=== PATIENT | male | born 1960 | race Caucasian/White ===

== ENCOUNTER 2016-07-31 21:18 | Inpatient (IN) | payer OTHER ==
[2016-07-31] MEDS ORDERED: IBUPROFEN 800 MG TAB PO STA (22:00)
[2016-07-31] MEDS ORDERED: SODIUM CHLORIDE 0.9% 1,000 ML IV STA (22:00)
[2016-07-31] MEDS ORDERED: SODIUM CHLORIDE 0.9% 500 ML IV STA (22:00)
--- NOTE | 2016-07-31 22:09 | ED ---
General Adult HPI <Aung Simmons - Last Filed: 08/01/16 01:14> - General Source: patient, RN notes reviewed Mode of arrival: wheelchair Limitations: no limitations <Hossein Witt - Last Filed: 08/01/16 01:44> - General Chief complaint: Shortness of Breath Stated complaint: Fever/Weak Time Seen by Provider: 07/31/16 21:42 - History of Present Illness Initial comments: This a 55-year-old male presents emergency Department chief complaint of fever, not feeling well. Patient states that he recently traveled for a wedding and states that he developed a fever and some congestion. Patient was seen at urgent care today and diagnosed with pneumonia. Patient was placed on doxycycline. Patient states that she took 975 mg of Tylenol at 8:30. Patient states that he has had a cough but denies any sore throat, ear pain. Patient states he has had adequate the fever. States it comes and goes. Patient had influenza, strep, x-ray and urinalysis performed at urgent care. Patient had mild hematuria no leukocytes. Patient has no abdominal pain denies any nausea vomiting diarrhea constipation. Denies any neck stiffness. (Hossein Witt) - Related Data Home Medications Medication Instructions Recorded Confirmed Metoprolol Succinate (ER) [Toprol 25 mg PO HS 01/23/15 01/24/15 XL] Omeprazole [PriLOSEC] 20 mg PO AC-BRKFST 01/23/15 01/23/15 ALPRAZolam [Xanax] 0.5 mg PO DAILY PRN 01/24/15 01/24/15 Acetaminophen Tab [Tylenol] 500 mg PO Q6H PRN 01/24/15 01/24/15 Aspirin 325 mg PO DAILY 01/24/15 01/24/15 Cholecalciferol [Vitamin D3] 1,000 unit PO DAILY@1200 01/24/15 01/24/15 Diclofenac Sodium [Voltaren] 75 mg PO DAILY 01/24/15 01/24/15 Etanercept [Enbrel] 50 mg SQ SA 01/24/15 01/24/15 Loratadine [Claritin] 10 mg PO DAILY 01/24/15 01/24/15 Vardenafil HCl [Levitra] 20 mg PO DAILY PRN 01/24/15 01/24/15 Previous Rx's Medication Instructions Recorded Aspirin EC [Ecotrin] 325 mg PO DAILY #30 tablet. 01/26/15 Atorvastatin [Lipitor] 80 mg PO HS #30 tab 01/26/15 Lisinopril [Zestril] 5 mg PO BID #60 tab 01/26/15 Nitroglycerin Sl Tabs [Nitrostat] 0.4 mg SUBLINGUAL Q5M PRN #25 tab 01/26/15 Prasugrel [Effient] 10 mg PO DAILY #30 tab 01/26/15 Allergies Allergy/AdvReac Type Severity Reaction Status Date / Time amoxicillin Allergy Rash/Hives Verified 01/24/15 12:09 shellfish derived [Shellfish] Allergy Anaphylaxis Verified 01/24/15 12:09 Sulfa (Sulfonamide Allergy Rash/Hives Verified 01/24/15 12:09 Antibiotics) Review of Systems ROS Other: All systems not noted in ROS Statement are negative. <Aung Simmons - Last Filed: 08/01/16 01:14> ROS Other: All systems not noted in ROS Statement are negative. <Hossein Witt - Last Filed: 08/01/16 01:44> ROS Statement: Those systems with pertinent positive or pertinent negative responses have been documented in the HPI. Past Medical History Past Medical History: GERD/Reflux, Hyperlipidemia, Hypertension, Osteoarthritis (OA) Additional Past Medical History / Comment(s): Psoriatic arthritis History of Any Multi-Drug Resistant Organisms: None Reported Past Surgical History: Hernia Repair, Pacemaker Past Anesthesia/Blood Transfusion Reactions: No Reported Reaction Type of Cardiac Device: Permanent Pacemaker Device Placement Date:: 10/2013 Past Psychological History: No Psychological Hx Reported Smoking Status: Former smoker Past Alcohol Use History: Occasional Past Drug Use History: None Reported - Past Family History Father Family Medical History: Coronary Artery Disease (CAD), Myocardial Infarction ([place] ) Mother Family Medical History: Coronary Artery Disease (CAD), CVA/TIA Sister(s) Family Medical History: Diabetes Mellitus Brother(s) Family Medical History: Sleep Apnea/CPAP/BIPAP <Hossein Witt - Last Filed: 08/01/16 01:44> General Exam Limitations: no limitations General appearance: alert, in no apparent distress Head exam: Present: atraumatic, normocephalic, normal inspection Eye exam: Present: normal appearance, PERRL, EOMI. Absent: scleral icterus, conjunctival injection, periorbital swelling ENT exam: Present: normal exam, normal oropharynx, mucous membranes moist Neck exam: Present: normal inspection, full ROM. Absent: tenderness, meningismus, lymphadenopathy Respiratory exam: Present: normal lung sounds bilaterally. Absent: respiratory distress, wheezes, rales, rhonchi, stridor Cardiovascular Exam: Present: regular rate, normal rhythm, normal heart sounds. Absent: systolic murmur, diastolic murmur, rubs, gallop, clicks GI/Abdominal exam: Present: soft, normal bowel sounds. Absent: distended, tenderness, guarding, rebound, rigid <Hossein Witt - Last Filed: 08/01/16 01:44> Procedures - Lumbar Puncture Time Out Performed: Yes (Patient agreed to proceed with the LP) Indication for Procedure: headache, fever work up Patient Position: right lateral decubitus Skin Prep: 0.5% Chlorhexidine/Alcohol Local Anesthetic Used: Lidocaine 1% Spinal Needle Gauge: 20G Spinal Needle Length: 3in Interspace Used: L3-L4 Fluid Initially Obtained: clear Complications: none (Patient has a lot of arthritis, it was hard to get him in right position but he did well there were no Medications from the procedure) <Aung Simmons - Last Filed: 08/01/16 01:14> Medical Decision Making - Lab Data Result diagrams: 07/31/16 22:10 07/31/16 22:10 <Aung Simmons - Last Filed: 08/01/16 01:14> - Lab Data Result diagrams: 07/31/16 22:10 07/31/16 22:10 <Hosesin Witt - Last Filed: 08/01/16 01:44> - Lab Data Lab Results 07/31/16 07/31/16 07/31/16 Range/Units 22:10 22:10 22:10 WBC 3.1 L (3.8-10.6) k/uL RBC 4.48 (4.30-5.90) m/uL Hgb 15.3 (13.0-17.5) gm/dL Hct 44.3 (39.0-53.0) % MCV 98.9 (80.0-100.0) fL MCH 34.0 (25.0-35.0) pg MCHC 34.4 (31.0-37.0) g/dL RDW 14.5 (11.5-15.5) % Plt Count 118 L (150-450) k/uL Neutrophils % 67 % Lymphocytes % 18 % Monocytes % 10 % Eosinophils % 0 % Basophils % 0 % Neutrophils # 2.1 (1.3-7.7) k/uL Lymphocytes # 0.6 L (1.0-4.8) k/uL Monocytes # 0.3 (0-1.0) k/uL Eosinophils # 0.0 (0-0.7) k/uL Basophils # 0.0 (0-0.2) k/uL Sodium 140 (137-145) mmol/L Potassium 3.4 L (3.5-5.1) mmol/L Chloride 105 (98-107) mmol/L Carbon Dioxide 25 (22-30) mmol/L Anion Gap 10 mmol/L BUN 13 (9-20) mg/dL Creatinine 0.80 (0.66-1.25) mg/dL Est GFR (MDRD) Af Amer >60 (>60 ml/min/1.73 sqM) Est GFR (MDRD) Non-Af >60 (>60 ml/min/1.73 sqM) Glucose 162 H (74-99) mg/dL Plasma Lactic Acid Cameron (0.7-2.0) mmol/L Calcium 9.1 (8.4-10.2) mg/dL Magnesium 1.8 (1.6-2.3) mg/dL Total Bilirubin 0.4 (0.2-1.3) mg/dL AST 69 H (17-59) U/L ALT 69 (21-72) U/L Alkaline Phosphatase 42 (38-126) U/L Troponin I <0.012 (0.000-0.034) ng/mL Total Protein 6.5 (6.3-8.2) g/dL Albumin 4.0 (3.5-5.0) g/dL CSF Glucose (40-70) mg/dL CSF Total Protein (12-60) mg/dL 07/31/16 08/01/16 Range/Units 22:10 00:55 WBC (3.8-10.6) k/uL RBC (4.30-5.90) m/uL Hgb (13.0-17.5) gm/dL Hct (39.0-53.0) % MCV (80.0-100.0) fL MCH (25.0-35.0) pg MCHC (31.0-37.0) g/dL RDW (11.5-15.5) % Plt Count (150-450) k/uL Neutrophils % % Lymphocytes % % Monocytes % % Eosinophils % % Basophils % % Neutrophils # (1.3-7.7) k/uL Lymphocytes # (1.0-4.8) k/uL Monocytes # (0-1.0) k/uL Eosinophils # (0-0.7) k/uL Basophils # (0-0.2) k/uL Sodium (137-145) mmol/L Potassium (3.5-5.1) mmol/L Chloride (98-107) mmol/L Carbon Dioxide (22-30) mmol/L Anion Gap mmol/L BUN (9-20) mg/dL Creatinine (0.66-1.25) mg/dL Est GFR (MDRD) Af Amer (>60 ml/min/1.73 sqM) Est GFR (MDRD) Non-Af (>60 ml/min/1.73 sqM) Glucose (74-99) mg/dL Plasma Lactic Acid Cameron 1.9 (0.7-2.0) mmol/L Calcium (8.4-10.2) mg/dL Magnesium (1.6-2.3) mg/dL Total Bilirubin (0.2-1.3) mg/dL AST (17-59) U/L ALT (21-72) U/L Alkaline Phosphatase (38-126) U/L Troponin I (0.000-0.034) ng/mL Total Protein (6.3-8.2) g/dL Albumin (3.5-5.0) g/dL CSF Glucose 68 (40-70) mg/dL CSF Total Protein 57 (12-60) mg/dL Disposition <Aung Simmons - Last Filed: 08/01/16 01:14> <Hossein Witt - Last Filed: 08/01/16 01:44> Clinical Impression: Headache, Fever Disposition: ADMITTED IP TO THIS [facility] Condition: Fair Referrals: Nonstaff,Physician [Primary Care Provider] - 1-2 days
[2016-07-31 22:29] LABS: ALT 69 U/L (21-72); AST 69 U/L (17-59); Alkaline Phosphatase 42 U/L (38-126); Anion Gap 10 mmol/L; Blood Urea Nitrogen 13 mg/dL (9-20); Calcium 9.1 mg/dL (8.4-10.2); Carbon Dioxide 25 mmol/L (22-30); Chloride 105 mmol/L (98-107); Glucose 162 mg/dL (74-99); Magnesium 1.8 mg/dL (1.6-2.3); Non-African American GFR(MDRD) >60 (>60 ml/min/1.73 sqM); Potassium 3.4 mmol/L (3.5-5.1); Sodium 140 mmol/L (137-145); Total Bilirubin 0.4 mg/dL (0.2-1.3); Total Protein 6.5 g/dL (6.3-8.2)
[2016-07-31 22:37] LABS: Basophils % (A) 0 %; CH 34.8; CHCM 35.4; Eosinophils % (A) 0 %; HCT 44.3 % (39.0-53.0); HDW 2.63; HGB 15.3 gm/dL (13.0-17.5); Luc # (Auto) 0.14; Luc % (Auto) 4; Lymphocytes # (A) 0.6 k/uL (1.0-4.8); Lymphocytes % (A) 18 %; MCHC 34.4 g/dL (31.0-37.0); MCV 98.9 fL (80.0-100.0); Mean Platelet Volume 6.5; Monocytes # (A) 0.3 k/uL (0-1.0); Monocytes % (A) 10 %; Neutrophils # (A) 2.1 k/uL (1.3-7.7); Neutrophils % (A) 67 %; RBC 4.48 m/uL (4.30-5.90); RDW 14.5 % (11.5-15.5); WBC 3.1 k/uL (3.8-10.6); WBC (Perox) 3.02
--- NOTE | 2016-07-31 22:46 | XR ---
EXAM: XR Chest, 2 Views CLINICAL HISTORY: Reason: difficulty breathing TECHNIQUE: Frontal and lateral views of the chest. COMPARISON: 01/23/2015 FINDINGS: Lungs: Unremarkable. No consolidation. Pleural space: Unremarkable. No pneumothorax. Heart: Unremarkable. No cardiomegaly. Mediastinum: Unremarkable. Bones/joints: No acute osseous abnormality. Tubes, lines and devices: Stable left chest wall pacemaker. IMPRESSION: No acute cardiopulmonary process.
--- NOTE | 2016-08-01 00:22 | CT ---
EXAM: CT Head Without Intravenous Contrast CLINICAL HISTORY: Pain TECHNIQUE: Axial computed tomography images of the head/brain without intravenous contrast. CTDI is 57.40 mGy and DLP is 1098.80 mGy-cm. This CT exam was performed using one or more of the following dose reduction techniques: automated exposure control, adjustment of the mA and/or kV according to patient size, and/or use of iterative reconstruction technique. COMPARISON: No relevant prior studies available. FINDINGS: Brain: Unremarkable. No acute hemorrhage. Normal moore-white differentiation. No significant mass effect. Ventricles: Unremarkable. No ventriculomegaly. Bones/joints: Unremarkable. No acute fracture. Soft tissues: Unremarkable. Sinuses: Unremarkable as visualized. No acute sinusitis. Mastoid air cells: Unremarkable. IMPRESSION: No acute intracranial abnormality.
[2016-08-01] MEDS ORDERED: IV VANCOMYCIN PER PHARMACY 1 EACH MISC MISCELLANE PRN (00:34)
[2016-08-01] MEDS ORDERED: cefTRIAXone 2,000 MG in SODIUM CHLORIDE 0.9% 100 ML IVPB STA (00:40)
[2016-08-01] MEDS ORDERED: VANCOMYCIN 1,750 MG in SODIUM CHLORIDE 0.9% 250 ML IVPB SCH ×2 (01:00→10:00)
[2016-08-01 01:30] LABS: Glucose,CSF 68 mg/dL (40-70)
[2016-08-01] MEDS ORDERED: ONDANSETRON 4 MG/2 ML VIAL IVP PRN (01:44)
[2016-08-01] MEDS ORDERED: LORazepam 2 MG/ML SYRINGE IV PRN (01:44)
[2016-08-01] MEDS ORDERED: NALOXONE 0.4 MG/ML 1 ML VIAL IV PRN (01:44)
[2016-08-01] MEDS ORDERED: MORPHINE SULFATE 4 MG/ML SYRINGE IV PRN (01:44)
[2016-08-01 02:13] LABS: Appearance,CSF Clear
[2016-08-01 03:13] LABS: Red Blood Cell, CSF Crenated 100 %
[2016-08-01] MEDS: SODIUM CHLORIDE 0.9% 1,000 ML IV SCH ×2 (03:46→17:08)
[2016-08-01] MEDS ORDERED: ALPRAZolam 0.5 MG TAB PO PRN (10:43)
[2016-08-01] MEDS ORDERED: VARDENAFIL HCL 20 MG PO PRN (10:49)
[2016-08-01] MEDS ORDERED: NITROGLYCERIN SL TABS 0.4 MG TAB SUBLINGUAL PRN (10:49)
[2016-08-01] MEDS ORDERED: HYDROCHLOROTHIAZIDE 12.5 MG CAP PO SCH (11:15)
[2016-08-01] MEDS: VALSARTAN 160 MG TAB PO SCH (11:28)
[2016-08-01] MEDS: FOLIC ACID 1 MG TAB PO SCH (11:28)
[2016-08-01] MEDS: LORATADINE 10 MG TAB PO SCH (11:29)
[2016-08-01] MEDS: LACTOBACILLUS ACIDOPH & BULGAR 1 EACH PACKET PO SCH (11:29)
[2016-08-01] MEDS: MULTIVITAMINS, THERA 1 EACH TAB PO SCH (11:30)
[2016-08-01] MEDS: CLOPIDOGREL 75 MG TAB PO SCH (11:30)
[2016-08-01] MEDS: ESCITALOPRAM 10 MG TAB PO SCH (11:30)
[2016-08-01] MEDS: CHOLECALCIFEROL 1,000 UNIT TAB PO SCH (11:30)
[2016-08-01] MEDS: HYDROcodone/APAP 5-325MG 1 EACH TAB PO PRN ×3 (11:39→23:01)
[2016-08-01 15:14] LABS: Appearance,Urine Clear (Clear); Bilirubin,Urine Negative (Negative); Glucose,Urine (UA) Negative (Negative); Ketones,Urine Negative (Negative); Leukocyte Esterase,Urine Negative (Negative); Nitrite,Urine Negative (Negative); Protein,Urine Negative (Negative); UA Billing (MACRO vs. MICRO) CHEM; Urobilinogen,Urine <2.0 mg/dL (<2.0)
[2016-08-01] MEDS: ACETAMINOPHEN TAB 325 MG TAB PO PRN ×2 (15:19→23:03)
[2016-08-01] MEDS ORDERED: LEVOFLOXACIN 750 MG TAB PO SCH (17:30)
--- NOTE | 2016-08-01 17:51 | CT ---
EXAMINATION TYPE: CT chest wo con DATE OF EXAM: 08/01/2016 5:19 PM COMPARISON: NONE HISTORY: Fever and headaches x [address] DLP: 531.70 mGycm Automated exposure control for dose reduction was used. FINDINGS: The lungs are clear of consolidation. There is no pleural effusion. There is mild subsegmental atelec tasis at the posterior lung bases. There is no evidence of a pulmonary mass. There are a few mediastinal lymph nodes that measure up to 1.5 cm. There are no hilar masses. There i s no pericardial effusion. Thoracic aorta has normal size. There is no evidence of aneurysm. The bony thorax is intact. There is a 4 cm low-density area on the posterior right kidney consistent with cor tical cyst. IMPRESSION: THERE ARE A FEW MEDIASTINAL NONSPECIFIC LYMPH NODES. MILD SCARRING OR SUBSEGMENTAL ATELECTASIS AT THE LUNG BASES. NO EVIDENCE OF BRONCHOPNEUMONIA.
[2016-08-01] MEDS ORDERED: METOPROLOL SUCCINATE (ER) 25 MG TAB.ER.24H PO SCH (21:00)
[2016-08-01] MEDS ORDERED: ATORVASTATIN 40 MG TAB PO SCH (21:00)
[2016-08-01] MEDS ORDERED: RIVAROXABAN 10 MG TAB PO SCH (21:00)
[2016-08-02] MEDS: SODIUM CHLORIDE 0.9% 1,000 ML IV SCH (05:50)
[2016-08-02] MEDS ORDERED: PANTOPRAZOLE 40 MG TABLET PO SCH (07:30)
[2016-08-02 07:32] VITALS: BP 130/79; PULSE 69; RESP 22; TEMP 98.7
--- NOTE | 2016-08-02 07:56 | HP ---
DATE OF ADMISSION: 08/01/2016 55-year-old gentleman from [place] came in with complaints ( ) was started on Monday. Patient came from [place] to [place] on Monday. The patient was having some cough. Patient was told he has pneumonia, although chest x-ray did not show any pneumonic process. Patient denied any significant sputum production. Patient denied any dysuria, denied any nausea, vomiting. Denied any abdominal pain, diarrhea. Patient had diarrhea after antibiotics. If she has diarrhea again, we will obtain Clostridium difficile testing. We will obtain an influenza testing here. UA and urine cultures will be obtained as well. Patient has psoriatic arthritis for which patient received Enbrel that is ( ) and also methotrexate. Patient had coccidiomycosis serology and Histoplasma serology were being obtained at this point of time and infectious disease will be consulted. Patient denied any stiffness. Patient underwent lumbar puncture as well, which is negative for any kind of infection including viral meningitis. Patient was having myalgias as well. ROS: All other systems were reviewed and were negative. Home medications include: 1. Metoprolol. 2. Omeprazole. 3. Alprazolam. 4. Acetaminophen. 5. Aspirin. 6. Cholecalciferol. 7. Diclofenac. 8. ( ). 9. Loratadine. 10. Modafil. 11. Aspirin. 12. Lovastatin. 13. Lisinopril. 14. Nitroglycerin. 15. Effient. ALLERGIC TO AMOXICILLIN, SHELLFISH AND SULFA DRUGS. PAST MEDICAL HISTORY: Significant for gastroesophageal reflux disease, hyperlipidemia, hypertension, osteoarthritis, hernia repair, permanent pacemaker placement. Psoriatic arthritis in the past. SOCIAL HISTORY: Former smoker. Denied any alcohol abuse or drug abuse. FAMILY HISTORY: Father had coronary artery disease. Mother had coronary artery disease, sister has history of diabetes mellitus, brother has sleep apnea. PHYSICAL EXAMINATION: VITAL SIGNS: Temperature 100.4, pulse of 72, respiratory rate of 19, blood pressure is 134/81. Saturating at 97% on room air. GENERAL: The patient is alert and oriented x3, not in any acute distress. Well developed, well nourished. HEENT: Pupils are round and equally reacting to light. EOMI. No scleral icterus. No conjunctival pallor. Normocephalic, atraumatic. No pharyngeal erythema. No thyromegaly. CARDIOVASCULAR: S1 and S2 present. No murmurs, rubs, or gallops. PULMONARY: Chest is clear to auscultation, no wheezing or crackles. ABDOMEN: Soft, nontender, nondistended, normoactive bowel sounds. No palpable organomegaly. MUSCULOSKELETAL: No joint swelling or deformity. EXTREMITIES: No cyanosis, clubbing, or pedal edema. NEUROLOGICAL: Gross neurological examination did not reveal any focal deficits. SKIN: No rashes. CMP, essentially within normal limits. Potassium is 3.4. Chest x-ray brain CT all the rest of the work-up is essentially negative. ASSESSMENT AND PLAN: 1. Fever of unknown origin as patient is from [place] and patient is immunosuppressed we will look for coccidioidomycosis and histoplasmosis and patient will be on empiric antibiotics Rocephin. I believe vancomycin can be discontinued, but I will leave the decision to infectious disease and no other source of infection was found. 2. Hypokalemia potassium will be supplemented. 3. Patient is immunosuppressive secondary to Enbrel and methotrexate for psoriatic arthritis, which will be continued at this point of time. 4. Hyperlipidemia. 5. Hypertension. 6. Diabetes mellitus. For above mentioned chronic medical problems, we will go ahead and continue his home medications. ROBERTA
[2016-08-02] MEDS ORDERED: cefTRIAXone 2,000 MG in SODIUM CHLORIDE 0.9% 100 ML IVPB SCH (09:00)
[2016-08-02 09:03] LABS: Anion Gap 8 mmol/L; Blood Urea Nitrogen 9 mg/dL (9-20); Calcium 8.7 mg/dL (8.4-10.2); Carbon Dioxide 27 mmol/L (22-30); Chloride 105 mmol/L (98-107); Glucose 107 mg/dL (74-99); Non-African American GFR(MDRD) >60 (>60 ml/min/1.73 sqM); Potassium 3.7 mmol/L (3.5-5.1); Sodium 140 mmol/L (137-145)
[2016-08-02] MEDS: VALSARTAN 160 MG TAB PO SCH (09:18)
[2016-08-02] MEDS: ESCITALOPRAM 10 MG TAB PO SCH (09:18)
[2016-08-02] MEDS: LORATADINE 10 MG TAB PO SCH (09:19)
[2016-08-02] MEDS: CLOPIDOGREL 75 MG TAB PO SCH (09:19)
[2016-08-02] MEDS: LACTOBACILLUS ACIDOPH & BULGAR 1 EACH PACKET PO SCH (09:19)
[2016-08-02] MEDS: HYDROcodone/APAP 5-325MG 1 EACH TAB PO PRN (09:26)
[2016-08-02] MEDS: ACETAMINOPHEN TAB 325 MG TAB PO PRN (09:26)
[2016-08-02 09:33] LABS: CH 34.2; CHCM 33.8; HCT 45.1 % (39.0-53.0); HDW 2.55; HGB 14.8 gm/dL (13.0-17.5); MCH 33.4 pg (25.0-35.0); MCHC 32.9 g/dL (31.0-37.0); MCV 101.7 fL (80.0-100.0); Macrocytosis Slight; Mean Platelet Volume 6.9; RBC 4.44 m/uL (4.30-5.90); RDW 14.6 % (11.5-15.5); WBC 2.9 k/uL (3.8-10.6)
--- NOTE | 2016-08-02 09:35 | CONS ---
DATE OF CONSULTATION: 08/01/2016 REASON FOR CONSULTATION: Fever. HISTORY OF PRESENT ILLNESS: The patient is a 55-year-old male with past medical history significant for cellulitis, arthritis currently on the immunosuppressant medication. The patient is a resident of [place], has been living there for about 14 years now. He came in to [place] to attend a wedding. The patient said his flight was on Monday and Monday morning he did have some chills and some generalized body aches. However, the patient had bought his ticket and he decided to come to [place]. Over the next 2 days, the patient says he stayed mostly in the bed, feeling weak, lethargic. On Monday still having a fever of 102 degrees Fahrenheit. The patient's symptom also significant headache almost 9 out of 10, with associated photophobia. However, the patient denies significant runny nose or any sore throat. Denies significant chest pain. He did have some mild cough and some left lower rib cage chest pain especially when taking a deep breath or cough. However, unable to bring any sputum up. The patient denies having any abdominal pain. Did have two loose stools today. With these symptoms, the patient was initially evaluated at an urgent care. Subsequently referred to the [facility] ER for further evaluation. Patient has been evaluated by the ER physician. On arrival to the ER, patient did have a fever of 102.6 degrees Fahrenheit. The patient white count was 3.1. UA has been negative. The patient did have a spinal tap with the glucose 68, however, the white count was only 1. Patient has been treated with vancomycin and Rocephin was added. I was asked to see the patient for further recommendation regarding antibiotic therapy. REVIEW OF SYSTEMS: CONSTITUTIONAL: Positive for weakness and fever. EYES: No complaint. ENT: No complaint. RESPIRATORY: As per HPI. CARDIOVASCULAR: No complaint. GENITOURINARY: No complaint. GI: No complaint. MUSCULOSKELETAL: No complaint. INTEGUMENTARY: No complaint. ENDOCRINE: No complaint. NEUROLOGIC: No complaint. Past medical history significant for gastroesophageal reflux disease, hypertension, hyperlipidemia, osteoarthritis, psoriatic arthritis, history of DVT and PE. PAST SURGICAL HISTORY: Hernia repair and pacemaker placement. SOCIAL HISTORY: Remote history of smoking. No drinking or drug use. FAMILY HISTORY: Father has coronary artery disease, mother with a history of coronary artery disease, CVA, TIA and one sister with diabetes mellitus. ALLERGIES: AMOXICILLIN SHELLFISH, SULFA. MEDICATIONS: Currently include the patient is on: 1. Tylenol. 2. [place]. 3. Xanax. 4. Lipitor. 5. Rocephin 2 grams daily. 6. Vitamin D3. 7. Plavix. 8. Lexapro. 9. Lactinex. 10. Claritin. 11. Ativan. 12. Methotrexate. 13. Toprol-XL. 14. Theragran. 15. Narcan. 16. Nitrostat. 17. Zofran. 18. Protonix. 19. Xarelto. 20. Diovan. On examination, blood pressure is 134/80 with a pulse of 72, temperature of 100.4. He is 97% on room air. General description is a middle-age male lying in bed in no distress. No tachypnea or accessory muscles of respiration use. HEENT examination no pallor or scleral icterus. Oral mucous membranes moist. NECK: Trachea is central. No thyromegaly. LUNGS: Unlabored breathing. Coarse breath sounds at the base. No wheeze. HEART: S1, S2. Regular rate and rhythm. ABDOMEN: Soft. No tenderness. No guarding or rigidity. EXTREMITIES: No edema of feet. Some psoriatic rash but no definite cellulitis. NEUROLOGICAL: The patient is awake, alert, oriented x3. No signs of neck rigidity. LABS: Hemoglobin is 15.8, white count 3.1 with a BUN of 13, creatinine 0.80, potassium is 3.4. UA negative. CSF examination was negative. DIAGNOSTIC IMPRESSION AND PLAN: Patient with sepsis and patient did have a fever 102 degrees Fahrenheit. Did have slight leukopenia. Symptoms are predominant respiratory underlying pneumonia of community-acquired cannot be entirely excluded. Patient did have a significant amount of headache. However, the patient did have an LP and that was relatively clear. The patient with no other clinical focus of infection. on clinical examination with no evidence of any cellulitis or joint swelling. PLAN: 1. Discontinue the vancomycin. 2. Will obtain CT scan of the chest without any contrast to make sure did not have any significant amount of pneumonia. 3. We will obtain sputum for gram stain culture and sensitivity. 4. Obtain urine for legionella antigen. 5. Continue Rocephin. We will discontinue the vancomycin and Levaquin to cover for community acquired pathogen. 6. We will follow up on the clinical condition and cultures to further adjust the medication if needed. Thank you for this consultation. We will follow this patient along with you. ROBERTA
[2016-08-02] MEDS: FOLIC ACID 1 MG TAB PO SCH (12:44)
[2016-08-02] MEDS: MULTIVITAMINS, THERA 1 EACH TAB PO SCH (12:44)
[2016-08-02] MEDS: CHOLECALCIFEROL 1,000 UNIT TAB PO SCH (12:44)
--- NOTE | 2016-08-02 17:02 | PN ---
DATE OF SERVICE: 08/02/2016 REASON FOR FOLLOWUP: Fever and a question of pneumonia. INTERVAL HISTORY: The patient overall feels better and has improved. The patient is feeling much better. His headache has completely resolved. The patient denies significant chest pain or shortness of breath. Mild cough. No abdominal pain and no diarrhea. On examination, blood pressure is 130/79 with a pulse of 69, temperature 98.7. He is 98% on room air. General description is a middle-aged male lying in bed in no distress. RESPIRATORY SYSTEM: Unlabored breathing. Clear to auscultation anteriorly. HEART: S1, S2. Regular rate and rhythm. ABDOMEN: Soft. No tenderness. LABS: Hemoglobin is 14.8, white count 2.9 with a BUN of 9, creatinine 0.77. Urine is negative. Blood cultures are so far negative. Patient did have a CT of the chest yesterday which did show mild scarring of subsegmental atelectasis at the lung base; a few mediastinal non-specific lymph nodes. DIAGNOSTIC IMPRESSION AND PLAN: Patient admitted to hospital with a fever; did have a cough with a question of possible community-acquired pneumonia not entirely excluded. Patient did have overall improvement on Rocephin and Levaquin. Patient is from [place] and does have a flight back tomorrow. He should be able to go home from ID standpoint today, finishing therapy with p.o. Ceftin. Patient has been advised to take his CT on a disc from here and have a followup with his physician there in view of the lymph nodes that may need to be followed up. All their questions and concerns were answered.
[2016-08-02] MEDS ORDERED: VANCOMYCIN TROUGH DUE 1 EACH MISC MISCELLANE ONE (21:00)
--- NOTE | 2016-08-05 11:14 | CDI ---
In responding to this query, please exercise your independent professional judgment. The [facility] Coding Staff and Clinical Documentation Specialists appreciate your assistance in clarifying documentation, maintaining compliance with coding guidelines, accurately documenting patients condition and capturing severity of illness. The fact that a question is asked does not imply that any particular answer is desired or expected. Communication forms are a method of clarifying documentation and are not made part of the Legal Health Record. Thank you in advance for your clarification. Last Revision, January 2015 Elli Alfred [address] [facility] [place] [address] Documentation Clarification Form Date: 08/05/2016 11:03:00 AM From: Kerry Dang Admit Date: 08/01/2016 1:54:00 AM Patient Name: Ricardo Greene Visit Number: [id number] Discharge Date: 08/05/16 Dr. Nuria Prince or Aracely Linder 55 year old male from [place] presents with cough, fever and headache. History of psoriatic arthritis under treatment. Lumbar puncture was negative. ID consult stated patient with sepsis and fever of 102 with slight leukopenia. Treated with Rocephin. In your opinion what is the most clinically appropriate diagnosis for this patient? Sepsis Sepsis not found OTHER explanation of clinical findings __ Unable to determine (no explanation for clinical findings) Please document in your progress notes or History and Physical in order to capture severity of illness and risk of mortality. Include clinical findings that support your diagnosis. FYI: Press F11 to launch patient chart. Place X here if this finding has no clinical significance, is not applicable or if you are not able to provide any additional documentation. CLIFFORD Gautam, CCS, [facility] Certified [employer] Traveling Plant Operator/Neck Band Maker/Traveling Plant Operator II If you have any questions or concerns please contact Angie Mancuso, Sheeter Operator, Elli Alfred @ [phone] [facility]
[2016-08-06] MEDS ORDERED: NON-FORMULARY DRUG (Etanercept [Enbrel] 50 MG) SQ SCH (10:43)
[2016-08-07 00:58] LABS: Histoplasma Abs by ID None Detected (None Detected); Histoplasma Abs by Mycelia, CF <1:8 (<1:8)
[2016-08-07] MEDS ORDERED: METHOTREXATE SODIUM 2.5 MG TAB PO SCH (09:00)
--- NOTE | 2016-08-11 08:14 | P.DS ---
Providers Date of admission: 08/01/16 01:54 Expected date of discharge: 08/02/16 Attending physician: Juanpbalo Mckeon Consults: 08/01/16 13:25 Consult Physician Routine Consulting Provider: Kolby Simmons Consult Reason/Comments: Fever of unknown orign Do you want consulting provider notified?: Yes Primary care physician: Physician Nonstaff PCP in [place] Hospital Course: Final Diagnoses: 1. Sepsis in a patient with fever of unknown origin, immunosuppressed with slight leukopenia, possible community-acquired pneumonia not entirely excluded, possibly viral. Histoplasmosis and coccidiodomycosis workup initiated, please refer to serology serology below; chest CT reported a few mediastinal nonspecific lymph nodes without pulmonary nodules. Please refer to serology mentioned below. Urine Legionella negative. 2. Mild thrombocytopenia 3. Hypokalemia, supplemented, resolved. 4. Patient is immunosuppressed secondary to Enbrel and methotrexate for psoriatuc arthritis 5. Hyperlipidemia 6. Hypertension 7. Diabetes mellitus Hospital course: This a 55-year-old gentleman admitted with sepsis, fever, cough , headache, possible community-acquired pneumonia, in a patient from [place]. On admission , temperature 102.6, WBC 3.1, UA and blood cultures negative. CMP essentially within normal limits. Chest x-ray essentially negative. Lumbar puncture performed, CSF reported no growth in aerobic culture, Gram stain reported no organisms seen with RBCs 69, glucose 68, white count was only 1. Initially treated with vancomycin and Rocephin. Histoplasma serology pbtained.chest CT reported a few mediastinal nonspecific lymph nodes without pulmonary nodules. Serology reported: Coccidiodes Ab (CF) < 1.2, histoplasma AB IMM Diff nondetected, histoplasma mycel and yeast AB CF < 1:8, urine legionella AG not detected. Evaluated by infectious disease, maintained on both Rocephin and Levaquin with significant clinical improvement. Headache completely resolved. Brain CT nonacute. Patient has a flight scheduled to return to [place] tomorrow and has been cleared by infectious disease for discharge. Recommend further follow-up with his PCP regarding nonspecific mediastinal lymph nodes. Patient is being discharged home in a stable condition with guarded prognosis. The impression and plan of care has been dictated as directed as a scribe. : I performed a H&P examination of this patient and discussed the same with the dictator. I agree with the dictator's note. Any additional findings/opinions/ etc. will be noted. Patient Condition at Discharge: Stable Plan - Discharge Summary New Discharge Prescriptions: New Cefuroxime Axetil [Ceftin] 500 mg PO BID #20 tab Continue Omeprazole [PriLOSEC] 20 mg PO AC-BRKFST Metoprolol Succinate (ER) [Toprol XL] 25 mg PO HS Etanercept [Enbrel] 50 mg SQ SA ALPRAZolam [Xanax] 0.5 mg PO DAILY PRN PRN Reason: Anxiety Cholecalciferol [Vitamin D3] 1,000 unit PO DAILY@1200 Loratadine [Claritin] 10 mg PO DAILY Vardenafil HCl [Levitra] 20 mg PO DAILY PRN PRN Reason: RECREATION Nitroglycerin Sl Tabs [Nitrostat] 0.4 mg SUBLINGUAL Q5M PRN #25 tab PRN Reason: Chest Pain Escitalopram Oxalate [Lexapro] 10 mg PO DAILY Methotrexate Sodium [Methotrexate] 15 mg PO NAILS Folic Acid 1 mg PO DAILY Rosuvastatin Calcium [Crestor] 20 mg PO HS Hydrocodone/Acetaminophen [Ohiopyle 7.5-325 Tablet] 1 tab PO DAILY PRN PRN Reason: Pain Valsartan/Hydrochlorothiazide [Valsartan-Hctz 320-12.5 mg Tab] 1 tab PO DAILY Rivaroxaban [Xarelto] 20 mg PO HS Multivitamins, Thera [Multivitamin (formulary)] 1 tab PO DAILY Clopidogrel Bisulfate [Plavix] 75 mg PO DAILY L.acidoph,Paracasei, B.lactis [Probiotic] 1 cap PO DAILY Acetaminophen [Tylenol 8 Hour] 650 mg PO BID PRN PRN Reason: Pain Discharge Medication List Metoprolol Succinate (ER) [Toprol XL] 25 mg PO HS 01/23/15 [History] Omeprazole [PriLOSEC] 20 mg PO AC-BRKFST 01/23/15 [History] ALPRAZolam [Xanax] 0.5 mg PO DAILY PRN 01/24/15 [History] Cholecalciferol [Vitamin D3] 1,000 unit PO DAILY@1200 01/24/15 [History] Etanercept [Enbrel] 50 mg SQ SA 01/24/15 [History] Loratadine [Claritin] 10 mg PO DAILY 01/24/15 [History] Vardenafil HCl [Levitra] 20 mg PO DAILY PRN 01/24/15 [History] Nitroglycerin Sl Tabs [Nitrostat] 0.4 mg SUBLINGUAL Q5M PRN #25 tab 01/26/15 [Rx ] Acetaminophen [Tylenol 8 Hour] 650 mg PO BID PRN 08/01/16 [History] Clopidogrel Bisulfate [Plavix] 75 mg PO DAILY 08/01/16 [History] Escitalopram Oxalate [Lexapro] 10 mg PO DAILY 08/01/16 [History] Folic Acid 1 mg PO DAILY 08/01/16 [History] Hydrocodone/Acetaminophen [Ohiopyle 7.5-325 Tablet] 1 tab PO DAILY PRN 08/01/16 [ History] L.acidoph,Paracasei, B.lactis [Probiotic] 1 cap PO DAILY 08/01/16 [History] Methotrexate Sodium [Methotrexate] 15 mg PO NAILS 08/01/16 [History] Multivitamins, Thera [Multivitamin (formulary)] 1 tab PO DAILY 08/01/16 [History ] Rivaroxaban [Xarelto] 20 mg PO HS 08/01/16 [History] Rosuvastatin Calcium [Crestor] 20 mg PO HS 08/01/16 [History] Valsartan/Hydrochlorothiazide [Valsartan-Hctz 320-12.5 mg Tab] 1 tab PO DAILY [History] Cefuroxime Axetil [Ceftin] 500 mg PO BID #20 tab 08/02/16 [Rx] Follow up Appointment(s)/Referral(s): Patient's own, Dr. PCP [Other] - 1 Week Ambulatory/Diagnostic Orders: Complete Blood Count w/diff [LAB.AMB] Time Frame: 3 Days, Location: Determined By Patient Patient Instructions/Handouts: Tension Headache (DC), Fever in Adults (GEN) Activity/Diet/Wound Care/Special Instructions: Cardiac diet. Activity as tolerated. Discharge Disposition: HOME SELF-CARE
== END 2016-08-02 16:27 | disposition home or self-care (01) | DRG 872 ==
LOC: EC 21:18 → 4MS4W 08-01 01:54
PROVIDERS: ADMIT Hospitalist; ATTEND Hospitalist
PROC: 009U3ZX Drainage of Spinal Canal, Percutaneous Approach, Diagnostic (ICD-10-PCS; principal; 2016-08-01)
DX: A41.9 Sepsis, unspecified organism (principal); D89.89 Other specified disorders involving the immune mechanism, not elsewhere classified; D69.6 Thrombocytopenia, unspecified; L40.50 Arthropathic psoriasis, unspecified; I10 Essential (primary) hypertension; R51 Headache; E87.6 Hypokalemia; E11.9 Type 2 diabetes mellitus without complications; E78.5 Hyperlipidemia, unspecified; M19.91 Primary osteoarthritis, unspecified site; T45.1X5A Adverse effect of antineoplastic and immunosuppressive drugs, initial encounter; T39.4X5A Adverse effect of antirheumatics, not elsewhere classified, initial encounter; K21.9 Gastro-esophageal reflux disease without esophagitis; Z88.2 Allergy status to sulfonamides; Z91.013 Allergy to seafood; Z88.0 Allergy status to penicillin; Z95.0 Presence of cardiac pacemaker; Z87.891 Personal history of nicotine dependence; Z79.01 Long term (current) use of anticoagulants; Z79.02 Long term (current) use of antithrombotics/antiplatelets; Z79.899 Other long term (current) drug therapy; Z79.82 Long term (current) use of aspirin; Y92.009 Unspecified place in unspecified non-institutional (private) residence as the place of occurrence of the external cause
CPT/HCPCS: 36415; 62270; 70450; 71020; 71250; 80048; 80053; 81003; 82945; 83605; 83735; 84157; 84484; 85025; 85027; 86635; 86698; 87040; 87070; 87086; 87205; 87449; 89050; 94760; 96361; 96365; 96367; 99285